=== PATIENT | female | born 1980 | race Caucasian/White ===

== ENCOUNTER 2017-11-02 23:10 | Emergency (ER) | payer MEDICARE ==
[~2017-11-02] VITALS: Ht 162.5 cm; Wt 84.4 kg
[2017-11-02] MEDS ORDERED: VALIUM5 MG PO (23:18)
[2017-11-02] MEDS ORDERED: EFFEXOR XR75 MG PO (23:18)
[2017-11-02] MEDS ORDERED: LYRICA150 M1 PO (23:19)
[2017-11-02] MEDS ORDERED: CYCLOBENZAPRINE10 MG PO (23:19)
[2017-11-03] MEDS ORDERED: NORCO 5-325 TA1 EACH PO (00:28)
== END 2017-11-03 00:50 | disposition home or self-care (01) ==
LOC: ED 23:10
DX: S52.592A Other fractures of lower end of left radius, initial encounter for closed fracture (principal); S52.612A Displaced fracture of left ulna styloid process, initial encounter for closed fracture; G89.29 Other chronic pain; M25.561 Pain in right knee; F17.200 Nicotine dependence, unspecified, uncomplicated; Z79.899 Other long term (current) drug therapy; Z88.0 Allergy status to penicillin; Z88.1 Allergy status to other antibiotic agents; W19.XXXA Unspecified fall, initial encounter; Y93.89 Activity, other specified; Y92.89 Other specified places as the place of occurrence of the external cause; Y99.9 Unspecified external cause status